=== PATIENT | male | born 1975 | race Two or more races ===

== ENCOUNTER 2019-04-18 17:27 | Emergency (ER) | payer BC ==
[~2019-04-18] VITALS: Ht 172.7 cm; Wt 133.4 kg
[2019-04-18 17:34] VITALS: BP 188/96; Ht 172.7 cm; Wt 133.4 kg
== END 2019-04-18 17:45 | disposition home or self-care (01) ==
LOC: ED 17:27
DX: S31.000A Unspecified open wound of lower back and pelvis without penetration into retroperitoneum, initial encounter (principal); L02.212 Cutaneous abscess of back [any part, except buttock and flank]; X58.XXXA Exposure to other specified factors, initial encounter; Y93.89 Activity, other specified; Y92.89 Other specified places as the place of occurrence of the external cause; Y99.8 Other external cause status
CPT/HCPCS: J1885